=== PATIENT | female | born 1985 ===

== ENCOUNTER 2018-03-09 14:56 | Emergency (ER) | payer BC ==
[~2018-03-09] VITALS: Ht 160 cm; Wt 52.2 kg
[2018-03-09] MEDS ORDERED: IBUPROFEN 600 MG TABLET PO ONE (15:15)
[2018-03-09] MEDS ORDERED: IBUPROFEN 600 MG TABLET ONE (15:17)
--- NOTE | 2018-03-09 15:50 | NUR ---
Patient discharged to home in stable conditon. Written and verbal after care instructions given. Patient verbalizes understanding of instructions.pt wakls in steadygait, no sign of distress.pt with family members
== END 2018-03-09 16:00 | disposition home or self-care (01) ==
LOC: ER 14:59
DX: S43.402A Unspecified sprain of left shoulder joint, initial encounter (principal); F12.10 Cannabis abuse, uncomplicated; V43.52XA Car driver injured in collision with other type car in traffic accident, initial encounter; Y93.89 Activity, other specified; Y92.89 Other specified places as the place of occurrence of the external cause; Y99.8 Other external cause status
CPT/HCPCS: 73030; 99284; A4663